=== PATIENT | male | born 1975 | race Caucasian/White ===

== ENCOUNTER 2023-09-09 11:57 | Day surgery (SDC) | payer OTHER ==
[~2023-09-09] VITALS: Ht 175.3 cm; Wt 88.5 kg
[2023-09-09] MEDS ORDERED: PROPOFOL 200 MG/20 ML VIAL IV ONE ×2 (13:24)
[2023-09-09] MEDS ORDERED: LIDOCAINE 2% 100 MG/5 ML SYR IVP ONE (13:26)
[2023-09-09] MEDS ORDERED: HYDROmorphone PFS 2 MG/ML SYR ONE (13:27)
[2023-09-09] MEDS ORDERED: MIDAZOLAM 2 MG/2 ML VIAL ONE (13:29)
[2023-09-09] MEDS ORDERED: BUPIVACAINE-MPF 0.25% 30 ML VIAL INJ ONE (13:41)
[2023-09-09] MEDS ORDERED: LIDOCAINE/EPI MPF 1%1:200000 30 ML VIAL INJ ONE (13:41)
[2023-09-09] MEDS ORDERED: ONDANSETRON 4 MG/2 ML VIAL IVP PRN (14:55)
[2023-09-09] MEDS ORDERED: HYDROmorphone 1 MG/ML AMP IVP PRN (14:55)
== END 2023-09-09 12:26 | disposition home or self-care (01) ==
LOC: MDS 11:57 → MMU 11:58 → MDS 12:26
PROVIDERS: ATTEND Surgery
DX: K64.8 Other hemorrhoids (principal); I10 Essential (primary) hypertension; E78.00 Pure hypercholesterolemia, unspecified
CPT/HCPCS: 46260; 71045; 88304; 93005; J1170; J2001; J2250; J2704; J3490